=== PATIENT | male | born 1990 | race African-American/Black ===

== ENCOUNTER 2020-07-01 08:43 | Emergency (ER) | payer SELFPAY ==
[~2020-07-01] VITALS: Ht 175.3 cm; Wt 62.0 kg
[2020-07-01 08:49] VITALS: BP 124/85
[2020-07-01] MEDS ORDERED: LIDOCAINE HCL/PF 1% 10 MG/ML 5ML VIAL IJ ONE (09:30)
[2020-07-01] MEDS ORDERED: BACITRACIN ZINC OINT UDPKT TOP ONE (09:30)
== END 2020-07-01 10:22 | disposition home or self-care (01) ==
LOC: ER 09:18
DX: H00.039 Abscess of eyelid unspecified eye, unspecified eyelid (principal)
CPT/HCPCS: 67700; 87070; 87077; 87186; 87205; 99284; J3490; 99283

== ENCOUNTER 2021-02-15 19:04 | Emergency (ER) | payer MEDICAID ==
[~2021-02-15] VITALS: Ht 175.3 cm; Wt 63.0 kg
[2021-02-15] MEDS ORDERED: ACETAMINOPHEN 325MG TABLET PO ONE (19:30)
[2021-02-15 20:53] LABS: CLARITY URINE CLEAR (CLEAR); COLOR URINE YELLOW (YELLOW); KETONES URINE TRACE (NEGATIVE); LEUKOCYTE ESTERASE URINE TRACE (NEGATIVE); NITRITE URINE NEGATIVE (NEGATIVE); OCCULT BLOOD URINE NEGATIVE (NEGATIVE); PROTEIN URINE NEGATIVE (NEGATIVE); SPECIFIC GRAVITY URINE 1.019 (1.005-1.030)
[2021-02-15 21:06] LABS: *AMPHETAMINES SCREEN URINE NEGATIVE (NEGATIVE); *BARBITURATES SCREEN URINE NEGATIVE (NEGATIVE); *COCAINE SCREEN URINE NEGATIVE (NEGATIVE)
[2021-02-15 21:07] LABS: *BENZODIAZEPINES SCREEN URINE NEGATIVE (NEGATIVE); CANNABINOID URINE SCREEN PRESUMTIVE POSITIVE (NEGATIVE); METHADONE URINE SCREEN NEGATIVE (NEGATIVE); OPIATES URINE SCREEN NEGATIVE (NEGATIVE); PHENCYCLIDINE URINE SCREEN NEGATIVE (NEGATIVE)
[2021-02-15] MEDS ORDERED: SULF1TAB48 MT (21:30)
[2021-02-15] MEDS ORDERED: SULFAMETHOXAZOLE/TRIMETHOPRIM 800/160MG TABLET PO ONE (21:30)
[2021-02-15 22:05] VITALS: BP 120/71
== END 2021-02-15 22:05 | disposition home or self-care (01) ==
LOC: ER 19:04
DX: N39.0 Urinary tract infection, site not specified (principal); Z98.890 Other specified postprocedural states
CPT/HCPCS: 72070; 72100; 80305; 81003; 99284